=== PATIENT | female | born 1960 | race Caucasian/White ===

== ENCOUNTER 2023-09-02 13:08 | Outpatient (CLI) | payer MEDICAID ==
[~2023-09-02] VITALS: Ht 160 cm; Wt 158.8 kg
[2023-09-02] MEDS: albuterol 2.5 MG/3 ML nebule NEB ONE (13:44)
[2023-09-02 13:45] VITALS: PULSE 69; RESP 15; O2SAT 95
== END 2023-09-02 23:59 | disposition home or self-care (01) ==
LOC: RT 13:08
PROVIDERS: ATTEND Family Medicine
DX: R94.2 Abnormal results of pulmonary function studies (principal); R06.02 Shortness of breath
CPT/HCPCS: 94060; 94760

== ENCOUNTER 2024-08-07 09:52 | Day surgery (SDC) | payer MEDICARE, MEDICAID ==
[2024-08-03 10:53] LABS: BASOPHILS # (AUTO) 0.1 X10'3 (0-0.2); BASOPHILS % (AUTO) 1.1 % (0-1); EOSINOPHILS # (AUTO) 0.2 X10'3 (0-0.9); EOSINOPHILS % (AUTO) 1.7 % (0-6); HEMATOCRIT 37.2 % (35.0-45.0); HEMOGLOBIN 12.6 g/dl (12.0-16.0); LYMPHOCYTES # (AUTO) 4.1 X10'3 (1.1-4.8); LYMPHOCYTES % (AUTO) 44.6 % (21-51); MEAN CORPUSCULAR HEMOGLOBIN 29.8 PG (27.0-31.0); MEAN CORPUSCULAR HGB CONC 33.9 g/dL (33.0-36.5); MEAN CORPUSCULAR VOLUME 87.9 FL (78-98); MEAN PLATELET VOLUME 9.5 FL (7.4-10.4); MONOCYTES # (AUTO) 0.7 X10'3 (0-0.9); MONOCYTES % (AUTO) 7.3 % (2-12); NEUTROPHILS # (AUTO) 4.1 X10'3 (1.8-7.7); NEUTROPHILS % (AUTO) 45.3 % (42-75); PLATELET COUNT 230 X10'3 (140-440); RED BLOOD COUNT 4.23 X10'6 (4.20-5.60); RED CELL DISTRIBUTION WIDTH 13.8 % (11.5-14.5); WHITE BLOOD COUNT 9.1 X10'3 (4.5-11.0)
[2024-08-03 11:03] LABS: APTT 25 SECONDS (22-32)
[2024-08-03 11:04] LABS: ALBUMIN 3.7 G/DL (3.4-5.0); ANION GAP 5 (8-16); BLOOD UREA NITROGEN 16 MG/DL (7-18); BUN/CREATININE RATIO 16.7 (10.0-20.0); CALCIUM 8.9 MG/DL (8.5-10.1); CHLORIDE 105 MMOL/L (99-107); CHOL/HDL RATIO 3.6 (0.00-4.99); CHOLESTEROL 143 MG/DL (0-200); CREATININE 0.96 MG/DL (0.40-0.90); GLUCOSE 207 MG/DL (70-104); HDL CHOLESTEROL 40 MG/DL (35-60); LDL CHOLESTEROL 73 MG/DL (50-100); SODIUM 139 MMOL/L (135-145); TOTAL CARBON DIOXIDE 28.8 MMOL/L (24-32); TRIGLYCERIDES 248 MG/DL (20-135); eGFR 58 ML/MIN
[2024-08-03 11:08] LABS: POTASSIUM 4.4 MMOL/L (3.5-5.1); PROTHROMBIN TIME 10.5 SECONDS (9.0-12.0)
[2024-08-07] VITALS (8 sets, daily range): BP systolic 141–182; BP diastolic 47–84; PULSE 71–79; RESP 10–22; TEMP 98.7; O2SAT 96–99
[~2024-08-07] VITALS: Ht 160 cm; Wt 153.8 kg
[~2024-08-07 09:52] MED LIST: BIOT25008 PO; CHOL100010 PO; CYCL-394 PO; ESCI10TA45 PO; EXEN10PE SQ; INSU100V36 SQ; LANTUS SQ; LISI-222 PO; NORCO10T PO; OXYB5TAB82 PO; ROSU20TA2 PO
[2024-08-07] MEDS ORDERED: LORazepam 0.5 MG tablet PO PRN (10:10)
[2024-08-07] MEDS ORDERED: TIRZ10PE (10:21)
[2024-08-07] MEDS ORDERED: LEVO50TA8 PO (10:21)
[2024-08-07] MEDS ORDERED: FURO20TA4 PO (10:21)
[2024-08-07] MEDS ORDERED: LOSA25TA41 PO (10:22)
[2024-08-07] MEDS ORDERED: ATOR-2 PO (10:22)
[2024-08-07] MEDS ORDERED: CHOL500050 PO (10:23)
[2024-08-07] MEDS ORDERED: METF-900 PO (10:24)
[2024-08-07] MEDS ORDERED: IBUP-1985 PO (10:24)
[2024-08-07] MEDS ORDERED: ALBU10.7 (10:25)
[2024-08-07] MEDS ORDERED: ASPI81TA52 PO (10:26)
--- NOTE | 2024-08-07 10:44 | ELECTROCARDIOGRAPH REPORT ---
[facility] Test Date: 2024-08-07 Test Time: 10:39:26 Pat Name: DAYLIN KEENE Department: [facility] Patient ID: [id number] Room: Gender: F Sample Prep Technician: COURTNEY : 1960 Requested By: RANDY ANTHONY Order Number: [id number] Reading MD: Dr. GERMAINE Prater Measurements Intervals [place] Rate: 70 P: 70 FL: 208 QRS: 23 QRSD: 110 T: 82 QT: 432 QTc: 467 Interpretive Statements Sinus rhythm Electronically Signed On 08-07-2024 16:35:[address] GERMAINE Prater Please click the below link to view image of tracing.
[2024-08-07] MEDS: diphenhydrAMINE 25mg capsule PO PRN (11:44)
[2024-08-07] MEDS: normal saline 1,000 ML IV SCH (11:44)
[2024-08-07] MEDS ORDERED: midazolam 1 mg/ML 2ml injection ONE (11:46)
[2024-08-07] MEDS ORDERED: verapamil 2.5 mg/ml inj IV ONE ×2 (11:46→12:04)
[2024-08-07] MEDS ORDERED: LIDOcaine 1% (10mg/ml) 2ml vial ONE ×2 (11:46→12:03)
[2024-08-07] MEDS ORDERED: fentaNYL/PF 50MCG/1 ML 2ML syringe ONE (11:46)
[2024-08-07] MEDS ORDERED: heparin 1,000unit/ml 10ml vial 10 ML ONE (11:47)
[2024-08-07] MEDS ORDERED: iohexol 350MG/ML 100ml bottle IV ONE (11:47)
[2024-08-07] MEDS ORDERED: nitroGLYCERIN 500mcg/5mL D5W 5 ML IV ONE (11:48)
--- NOTE | 2024-08-07 15:17 | PROGRESS NOTE ---
Clinical Note Clinical Note Progress Note: Dictation job #: [id number] Consultation dictated. Visit Coding Cardiology Date of Service: August 07, 2024 Billing Provider: RANDI MARTINEZ Jr., MD Cardiology Evaluation and Cecilia: CONSULT ONLY New Patient Outpatient Visit: 11830-YAL PT OP VISIT 60+ MIN RANDI MARTINEZ Jr., MD August 07, 2024 15:17
--- NOTE | 2024-08-07 20:41 | CONSULTATION ---
DATE OF CONSULTATION: 08/07/2024 DICTATING PHYSICIAN: Rito Macdonald MD REQUESTING PHYSICIAN: Arya Camejo MD; Yinka Camejo MD PRIMARY CARE PROVIDER: Tony Day DO CHIEF COMPLAINT: I was asked to assess the options for surgical correction of severe aortic stenosis in this woman with morbid obesity. HISTORY OF PRESENT ILLNESS: This pleasant woman with diabetes has not been able to work for many years because of her weight. She has recently lost weight with Mounjaro, but has had sufficient diabetic retinopathy that she is blind in her right eye and has substantially impaired vision in her left eye. She has longstanding mobility issues from her morbid obesity, superimposed on by left hip arthritis that she typically will use a wheelchair for anything other than very short distances and describes the extent of her activity as typically living room to bathroom using a cane or holding on objects. She does not actually appreciate an overt difference in exertion capacity above these limitations because of aortic valve stenosis, which has progressed to the severe state. Her primary care doctor had recognized a murmur. The patient has had a murmur as a child that appeared to have become undetectable when she was still a young girl. Her [facility] does not describe a bicuspid valve. The ejection fraction was 69%. The aortic valve area was 0.7 cm2 and the mean gradient was 47.5 mmHg. There was no aortic valve regurgitation. There was trace mitral regurgitation with moderate mitral annular calcification and trace tricuspid regurgitation. The RVSP was 23 mmHg with an estimated RA pressure of 3 mmHg. At cardiac catheterization today, the patient had normal coronary arteries with a right dominant circulation. Significantly, there was no pulmonary hypertension. The patient denies overt chest discomfort, palpitations and does not rise readily from a sitting position enough that she has ever appreciated orthostatic symptoms or lightheadedness. There are no palpitations, and the patient has had longstanding venous stasis dermatitis with lower extremity brawny-type swelling. ALLERGIES: METFORMIN AND MACRODANTIN. PAST MEDICAL HISTORY: OPERATIONS: Childbearing only. MEDICAL ILLNESSES: Insulin-dependent diabetes mellitus, obstructive sleep apnea (the patient has never used or tolerated a CPAP mask; she sleeps principally on her right side), hypertension, hypercholesterolemia. MEDICATIONS: Medication list reviewed, notable for lisinopril, Januvia, Crestor, Lantus, hydrocodone/acetaminophen, Humalog, Mounjaro, furosemide, atorvastatin, losartan, among others. FAMILY HISTORY: Noncontributory for the current problem. PERSONAL AND SOCIAL HISTORY: See above. REVIEW OF SYSTEMS: CONSTITUTIONAL: Notable for weight loss, associated with Mounjaro. Negative for fevers, chills, or night sweats. HEENT: Notable for upcoming dental extraction of 6 teeth, planned in anticipation of aortic valve replacement. Notable for vision impairment. Negative for epistaxis or dysphagia. CARDIOPULMONARY: See history of present illness. Negative for cough or hemoptysis. GASTROINTESTINAL: The patient had a murmur detected when she was considering bariatric surgery. Negative for blood per rectum or liver disease. GENITOURINARY: Negative for dysuria. ENDOCRINE: Notable for diabetes. Negative for known thyroid disorder. MUSCULOSKELETAL: Notable for arthritis in multiple joints, but notably most symptomatically in the left hip. Notable for venous stasis disease and mild lower extremity neuropathy of recent onset related to diabetes. NEUROLOGIC: Negative for transient ischemic attacks, amaurosis, or seizure. PHYSICAL EXAMINATION: GENERAL: The patient is a pleasant woman who is morbidly obese. She is sitting with the head of the bed at 40 degrees. VITAL SIGNS: Temperature 98.7 degrees, blood pressure 155/75, heart rate 75, regular, room air oxygen saturation 97%. HEENT: Normocephalic, reactive pupils, impaired dentition. NECK: No overt thyromegaly. Notable for a transmitted murmur to both carotids. Normal jugular venous distention. CHEST: Clear lungs posterolaterally. BREASTS: Examination not performed. HEART: S1, S2. No extrasystole. Notable for 2/6 systolic ejection murmur in the right second interspace with apical component. No diastolic murmur or apical holosystolic murmur. ABDOMEN: Obese, nontender, nondistended. No palpable aneurysm, and difficult to assess overt organomegaly. EXTREMITIES: Notable for venous stasis dermatitis. The dorsalis pedis pulses are palpable bilaterally. Gait and stance not checked. PSYCHIATRIC: Normal affect. IMPRESSION AND PLAN: 1. I think that this patient has sufficiently severe aortic valve stenosis even in the absence of obvious symptom progression or classic symptomatology, that aortic valve replacement is indicated. 2. However, because of the patient's mobility limitations which are very substantial, she is best served with a transcatheter approach, it appears that she is already preparing for such an option with upcoming dental extractions. 3. I am not perceiving that the patient has severe extraordinarily heavy calcifications of the aortic valve that would prohibit effective transcatheter valve implantation. 4. The patient was applauded for her efforts at weight loss, assisted with the Mounjaro medication. I very much appreciate this consultation opportunity. Rito Macdonald MD TID: [id number] RECEIPT: [id number] JAMESON/KATHERINE/SALENA cc: Yinka Camejo MD(User), DO TIM Nails
[2024-08-08 06:52] LABS: ISTAT HGB MIX 11.2 g/dl (12.0-16.0); ISTAT Hct MIX 33 %PCV (35-45); ISTAT O2 SATURATION MIX VENOUS 73 % (60-80); ISTAT SOURCE VEN
--- NOTE | 2024-08-26 12:10 | CARDIOLOGY REPORT ---
DATE OF SERVICE: 08/07/2024 DICTATING PHYSICIAN: Yinka Camejo MD CARDIAC CATHETERIZATION PROCEDURE DATE OF STUDY: 08/07/2024 PROCEDURES: * Selective coronary angiography. * Right heart catheterization. * Conscious sedation monitoring time for 45 minutes. INDICATION: Aortic stenosis. PHYSICIAN: Tez Camejo MD DESCRIPTION OF PROCEDURE: After informed consent was obtained, the patient was brought to the lab where she was prepped and draped in the usual sterile fashion. A 6-[place] sheath was inserted into the right radial artery. Next, using a TIG catheter, the catheter was advanced over a 0.035 wire and manipulated and selective left and right coronary artery angiography was performed. With a 6-[place] sheath in the right brachial vein, a [place] catheter was advanced under fluoroscopy guidance into the outflow tract and wedge position where pulmonary capillary wedge pressure and right-sided pressures were obtained. Hemostasis was obtained using manual pressure. HEMODYNAMICS: For the patient's hemodynamics, please refer to the event log. Left ventriculography was not performed. The patient's pulmonary capillary wedge pressure was 10/10 with a mean of 9 mmHg. Pulmonary arterial pressure was 33/10 with a mean of 18 mmHg. Right ventricular pressure was 33/2 with a mean of 2 mmHg. Right atrial pressure was 5/10 with a mean of 0 mmHg. Pulmonary arterial saturation was 73%. AO saturation was 94%. FINDINGS: The patient's coronary arteries are medium caliber vessels with mild luminal irregularities. IMPRESSION: * Mild luminal irregularities with no significant coronary artery disease by angiography. * Left ventriculography was not performed. * Mean pulmonary capillary wedge pressure was 9 mmHg and the patient's mean pulmonary arterial pressure was 18 mmHg. Yinka Camejo MD TID: [id number] RECEIPT: [id number] VALERIANO/ALEXIS
== END 2024-08-07 16:20 | disposition home or self-care (01) ==
LOC: SSTAY O 09:52
PROVIDERS: ATTEND Student in an Organized Health Care Education/Training Program
DX: I35.0 Nonrheumatic aortic (valve) stenosis (principal); G47.33 Obstructive sleep apnea (adult) (pediatric); E11.9 Type 2 diabetes mellitus without complications; I10 Essential (primary) hypertension; Z79.01 Long term (current) use of anticoagulants; Z79.899 Other long term (current) drug therapy
CPT/HCPCS: 36415; 80048; 80061; 82803; 82948; 85014; 85025; 85610; 85730; 93005; 93456; 99152; 99153; A6258; A6402; C1751; C1894; J1644; J2003; J2250; J3010; J3490; J7030; Q0163; Q9967; Z7610

== ENCOUNTER 2024-09-06 11:27 | Outpatient (CLI) | payer MEDICARE, MEDICAID ==
[~2024-09-06 11:27] MED LIST changes: +ALBU10.7; +ASPI81TA52 PO; +ATOR-2 PO; +CHOL500050 PO; -ESCI10TA45 PO; -EXEN10PE SQ; +FURO20TA4 PO; +IBUP-1985 PO; +IODIXANOL 320 MG/ML INFUS..BTL 100ML IV ONE; +LEVO50TA8 PO; -LISI-222 PO; +LOSA25TA41 PO; +METF-900 PO; -ROSU20TA2 PO; +TIRZ10PE
[2024-09-06 12:22] LABS: BASOPHILS # (AUTO) 0.1 X10'3 (0-0.2); BASOPHILS % (AUTO) 1.1 % (0-1); EOSINOPHILS # (AUTO) 0.2 X10'3 (0-0.9); EOSINOPHILS % (AUTO) 2.6 % (0-6); HEMATOCRIT 35.8 % (35.0-45.0); HEMOGLOBIN 12.1 g/dl (12.0-16.0); LYMPHOCYTES # (AUTO) 3.9 X10'3 (1.1-4.8); LYMPHOCYTES % (AUTO) 43.3 % (21-51); MEAN CORPUSCULAR HEMOGLOBIN 30.2 PG (27.0-31.0); MEAN CORPUSCULAR HGB CONC 33.8 g/dL (33.0-36.5); MEAN CORPUSCULAR VOLUME 89.5 FL (78-98); MEAN PLATELET VOLUME 9.9 FL (7.4-10.4); MONOCYTES # (AUTO) 0.7 X10'3 (0-0.9); NEUTROPHILS # (AUTO) 4.1 X10'3 (1.8-7.7); PLATELET COUNT 212 X10'3 (140-440); RED CELL DISTRIBUTION WIDTH 13.9 % (11.5-14.5)
[2024-09-06 12:30] LABS: APTT 21 SECONDS (22-32); PROTHROMBIN TIME 10.4 SECONDS (9.0-12.0)
[2024-09-06 12:49] LABS: ALANINE AMINOTRANSFERASE 18 U/L (12-78); ALBUMIN 3.5 G/DL (3.4-5.0); ALBUMIN/GLOBULIN RATIO 0.9 (1.1-1.5); ALKALINE PHOSPHATASE 77 IU/L (46-116); ANION GAP 9 (8-16); ASPARTATE AMINO TRANSFERASE 16 U/L (10-37); BILIRUBIN,TOTAL 0.6 MG/DL (0.1-1.0); BLOOD UREA NITROGEN 15 MG/DL (7-18); BUN/CREATININE RATIO 17.9 (10.0-20.0); CALCIUM 9.2 MG/DL (8.5-10.1); CHLORIDE 105 MMOL/L (99-107); CREATININE 0.84 MG/DL (0.40-0.90); GLUCOSE 86 MG/DL (70-104); POTASSIUM 3.7 MMOL/L (3.5-5.1); PRO BRAIN NATRIURETIC PEPTIDE 206 PG/ML (0-125); SODIUM 144 MMOL/L (135-145); TOTAL CARBON DIOXIDE 29.7 MMOL/L (24-32); TOTAL PROTEIN 7.5 G/DL (6.4-8.2); eGFR 68 ML/MIN
--- NOTE | 2024-09-06 12:52 | RADIOLOGY REPORT ---
EXAM: DI CHEST,TWO VIEWS CLINICAL HISTORY: Pain; AV STENOSIS,SOB,CAROTID STENOSIS COMPARISON: None TECHNIQUE: Frontal and lateral view of the chest was obtained FINDINGS: Lines and Tubes: None Lungs: No focal consolidation. Pleura: No effusion. No pneumothorax. Cardiomediastinal contours:Mild cardiomegaly. Atherosclerotic vascular calcifications of the thoracic aorta are noted. Bones: No acute osseous abnormality. IMPRESSION: No acute cardiopulmonary disease.
[2024-09-06] MEDS: diphenhydrAMINE 25mg capsule PO ONE (14:25)
--- NOTE | 2024-09-06 17:57 | CONSULTATION ---
DATE OF CONSULTATION: 09/06/2024 DICTATING PHYSICIAN: Hollis Hastings M.D. CARDIOVASCULAR CONSULTATION REFERRING PHYSICIAN: Dr. Camejo. Dear Dr. Camejo, I had the pleasure of seeing the patient here for cardiovascular consultation with regards to severe symptomatic aortic valve stenosis. As you recall, a very pleasant 63-year-old patient who has a history of hyperlipidemia, diabetes and obesity. She has very limited mobility and gets around on motorized scooters and/or devices. She has had progressive shortness of breath and dyspnea on exertion despite weight loss through the use of Mounjaro and she was found to have severe aortic valve stenosis on echocardiogram. She underwent angiographic imaging with nonobstructive coronary. She has preserved EF and it was thought that her severe was causing her symptomatology. She was referred over for candidacy for surgical aortic valve replacement and Dr. Macdonald had sent her over to see us for transcatheter valve replacement, giving her substantial limitations to recovery. PAST MEDICAL HISTORY: * Severe symptomatic aortic valve stenosis. * Hyperlipidemia. * Diabetes, on therapy. * Obstructive sleep apnea. * Obesity. PAST SURGICAL HISTORY: No surgical history. ALLERGIES: SHE HAS HIVES VISIBLY IN FRONT OF US AFTER HER CT SCAN TODAY AND SHOULD BE PRETREATED FOR CONTRAST ALLERGY. METFORMIN AND MACRODANTIN. MEDICATIONS: Oxybutynin 5 mg twice a day, losartan 25 mg a day, Lasix 20 mg a day, levothyroxine 50 mcg a day, atorvastatin 80 mg a day, metformin ER 500 mg twice a day, Lantus 60 units 3 times a day, Humalog 37 units 3 times a day, vitamin D3, ibuprofen as directed, narcotics as directed, Mounjaro 5 mg a week, albuterol as needed, multiple vitamins and aspirin 81 mg a day. SOCIAL HISTORY: She does live with her boyfriend and family locally. FAMILY HISTORY: Noncontributory given her age. VITAL SIGNS: She is 63 inches tall, 157 kg, heart rate is 80, blood pressure 156/72, satting 95% on room air. PHYSICAL EXAMINATION: GENERAL: A very pleasant 63-year-old woman, in no apparent distress at rest. She has visible hives on her left and right neck at the angle of the mandible and on her abdomen on the left. These are erythematous and pruritic. HEENT: She has the absence of dentition and no oral ulcers. NECK: She has full range of motion of her neck. CARDIOVASCULAR: Regular. She has a 3/6 mid to late peaking systolic ejection murmur with a soft S2. No RV heave was noted. LUNGS: Clear. ABDOMEN: Generous, but benign. We had the patient lay on her exam table and did an ultrasound of the femoral arteries. They are about 2 cm below the skin surface. EXTREMITIES: [place] appearance and 3+ edema. LABORATORY TESTS AND EVALUATION: * CT scan was done today and is pending a read. * Angiographic imaging of coronary anatomy took place in August for right radial approach, normal right heart pressures, nonsignificant coronary artery disease. * Nonobstructive carotid disease. * Echocardiogram shows preserved LV systolic function. She has an aortic valve area calculated at 0.7 cm2 with a mean gradient close to 50 mmHg. Labs: She has a hemoglobin of 12.2, platelet count 230,000; creatinine 0.96, her blood sugar 207 at that time, albumin is 3.7. Her LDL is 73. EKG shows her to be in sinus rhythm with a QRS duration of 110 milliseconds. Holter monitor does not show any major blocks. ASSESSMENT AND PLAN: A 63-year-old patient with the above-stated past medical history with severe symptomatic aortic valve stenosis. She has seen CT Surgery for consultation. It was deemed appropriately based on her size and medical conditions that recovery from a traditional sternotomy would be substantial and that if she was a candidate for a transfemoral TAVR, that might be her best option. We have the following plan for her: * We need to get the official read of her CT scan, if she is bicuspid, does she have a dilated root, does she have appropriate coronary height for a TAVR, if so, this should be considered. * She has had an allergy to contrast and should be pretreated for any further exposure. * She has had all of her teeth removed and has dental clearance at this time after multiple weeks of antibiotics. * Diabetes on therapy. * Hyperlipidemia, on therapy. * Hypothyroidism, on therapy. * She is on an active weight loss program and has lost weight and I think she will continue to do so postprocedure. Dr. Camejo, thanks for allowing us the opportunity to see the patient. If we can be of any further assistance with this or any patient in the future, please do not hesitate to call. Hollis Hastings M.D. TID: [id number] RECEIPT: [id number] HARPREET/GALILEA
--- NOTE | 2024-09-07 18:01 | RADIOLOGY REPORT ---
Procedure: CT CTA TAVR Reason for study/Clinical History: Chest pain, evaluate for dissection. Comparison Study: None Exam Date: 09/06/2024 01:41 PM TECHNIQUE: Multiplanar reformatted images were generated from volumetric data acquired on a multidetector CT [facility]. Cardiac gating was utilized. Arterial phase images were obtained through the chest, abdomen and pelvis following intravenous administration of contrast material. 100 mL visipaque [address] dose reduction techniques were utilized. 3-D reconstructions were performed on an independent work station. Radiation Dose Information: CT Dose: CTDI volume is 65 mGy. Dose-length product is 2598 mGy*cm FINDINGS: Vascular: Aortic measurements: Aortic annulus: 32.8 x 24.8 mm Sinus of valsalva: right cusp 31.5 mm, left cusp 29.3 mm, non-coronary cusp 31.4 mm Right coronary distance: 17.9 Left coronary distance: 11.3 ST junction 26.2 mm Ascending aorta 31 mm Aortic arch 22 mm Descending aorta 23 mm Aortic hiatus 21 mm Upper abdominal aorta 20 mm Minimal abdominal aorta 11.9 mm Right common iliac 9.01 mm, tortuosity index 1.13 Left common iliac 8.53 mm, tortuosity index 1.11 There is normal caliber of aorta. No aortic dissection. Aortic arch anatomy is conventional. There is conventional coronary artery anatomy. Scattered calcified atherosclerotic plaque. No central pulmonary embolism. There is normal dimension of the main pulmonary artery. Heart is normal. There are no intracardiac filling defects. No pericardial effusion. Mediastinum: There is no significant intrathoracic or axillary lymphadenopathy by CT size criteria. Lungs: Patchy ground-glass opacities in both lungs. Atelectasis and scarring in the lung bases. Pleura: No effusion or pneumothorax. Chest wall: No acute abnormality. Abdomen and Pelvis: Liver: Normal in appearance. Gallbladder: Cholelithiasis. Spleen: Normal in appearance. Pancreas: Normal in appearance. Adrenals: Normal in appearance. Kidneys: Normal in appearance. Bowel: Normal in appearance. Peritoneum: No free air or free fluid. Lymph nodes: No lymphadenopathy by CT size criteria. Pelvic structures: No pelvic mass. Bones: Normal in appearance. IMPRESSION: 1. TAVR planning with vascular measurements as described above. 2. Patchy ground-glass opacities in both lungs likely represent subsegmental atelectasis. Clinical co rrelation and continued follow-up is recommended. Cholelithiasis. HS:Y
[2024-09-11] MEDS ORDERED: TIRZ5PEN SQ (13:02)
[2024-09-11] MEDS ORDERED: ALBU8HFA INH (13:02)
[2024-09-11] MEDS ORDERED: vitamin c (13:05)
[2024-09-11] MEDS ORDERED: [UNRECOGNIZED DRUG - OTHER] (13:05)
[2024-09-11] MEDS ORDERED: GLUC1TAB75 PO (13:05)
== END 2024-09-06 23:59 | disposition home or self-care (01) ==
LOC: RAD 11:27
PROVIDERS: ATTEND Internal Medicine Cardiovascular Disease
DX: K80.20 Calculus of gallbladder without cholecystitis without obstruction (principal); J98.11 Atelectasis; J98.4 Other disorders of lung; I35.0 Nonrheumatic aortic (valve) stenosis; R06.02 Shortness of breath; I65.29 Occlusion and stenosis of unspecified carotid artery
CPT/HCPCS: 36415; 71046; 71275; 74174; 75572; 80053; 83880; 85025; 85610; 85730; Q0163; Q9967

== ENCOUNTER 2024-09-13 10:55 | Inpatient (IN) | payer MEDICARE, MEDICAID ==
[2024-09-11 11:29] LABS: BASOPHILS # (AUTO) 0.1 X10'3 (0-0.2); BASOPHILS % (AUTO) 0.6 % (0-1); EOSINOPHILS # (AUTO) 0.2 X10'3 (0-0.9); EOSINOPHILS % (AUTO) 2.9 % (0-6); LYMPHOCYTES # (AUTO) 3.1 X10'3 (1.1-4.8); LYMPHOCYTES % (AUTO) 37.8 % (21-51); MEAN CORPUSCULAR HEMOGLOBIN 30.1 PG (27.0-31.0); MEAN CORPUSCULAR HGB CONC 33.7 g/dL (33.0-36.5); MEAN CORPUSCULAR VOLUME 89.5 FL (78-98); MEAN PLATELET VOLUME 9.3 FL (7.4-10.4); MONOCYTES # (AUTO) 0.6 X10'3 (0-0.9); NEUTROPHILS # (AUTO) 4.3 X10'3 (1.8-7.7); NEUTROPHILS % (AUTO) 51.7 % (42-75); PRE OP HEMATOCRIT 37.5 % (35.0-45.0); PRE OP HEMOGLOBIN 12.6 g/dL (12.0-16.0); PRE OP PLATELET COUNT 206 X10'3 (140-440); PRE OP WHITE BLOOD COUNT 8.3 10'3 (4.8-10.8); RED BLOOD COUNT 4.19 X10'6 (4.20-5.60); RED CELL DISTRIBUTION WIDTH 14.1 % (11.5-14.5)
[2024-09-11 11:43] LABS: PRE OP PROTIME 10.4 SECONDS (9.0-12.0)
--- NOTE | 2024-09-11 11:45 | ELECTROCARDIOGRAPH REPORT ---
[facility] Test Date: 2024-09-11 Test Time: 11:25:04 Pat Name: DAYLIN KEENE Department: PRE/OP CARDIOLOGY Room: [place] [address] Gender: F Inside Sales Person: COURTNEY : 1960 Requested By: GORDON MONTGOMERY Order Number: [id number] Reading MD: Dr. Esvin Vaughn Measurements Intervals [place] Rate: 66 P: 51 ME: 203 QRS: 57 QRSD: 105 T: 66 QT: 423 QTc: 444 Interpretive Statements Sinus rhythm Abnormal R-wave progression, delayed precordial transition Borderline T abnormalities, lateral leads Electronically Signed On 09-14-2024 8:10:[address] Esvin Vaughn Please click the below link to view image of tracing.
[2024-09-11 11:59] LABS: ALBUMIN 3.7 G/DL (3.4-5.0); ALBUMIN/GLOBULIN RATIO 0.9 (1.1-1.5); ALKALINE PHOSPHATASE 79 IU/L (46-116); BLOOD UREA NITROGEN 13 MG/DL (7-18); BUN/CREATININE RATIO 14.1 (10.0-20.0); CALCIUM 9.4 MG/DL (8.5-10.1); CHLORIDE 105 MMOL/L (99-107); CREATININE 0.92 MG/DL (0.40-0.90); PRE OP ALT 16 U/L (30-65); PRE OP ANION GAP 8 (8-16); PRE OP AST 20 U/L (10-37); PRE OP BILIRUB, TOTAL 0.6 MG/DL (0.0-1.0); PRE OP GLUCOSE 127 MG/DL (70-104); PRE OP POTASSIUM 3.8 MMOL/L (3.4-5.1); PRE OP SODIUM 143 MMOL/L (135-145); PRO BRAIN NATRIURETIC PEPTIDE 156 PG/ML (0-125); THYROID STIMULATING HORMONE 1.32 ulU/ml (0.34-4.50); TOTAL CARBON DIOXIDE 30.5 MMOL/L (24-32); eGFR 61 ML/MIN
[2024-09-11 12:00] LABS: HEMOGLOBIN A1C 7.2 % (4.5-6.2)
[2024-09-11 12:49] LABS: BILIRUBIN,URINE NEGATIVE (Neg); CLARITY,URINE CLEAR (Clear); COLOR,URINE YELLOW (Yellow); GLUCOSE, URINE NEGATIVE (Neg); KETONES,URINE NEGATIVE (Neg); LEUKOCYTE ESTERASE ,URINE TRACE (Neg); NITRITES, URINE POSITIVE (Neg); OCCULT BLOOD,URINE NEGATIVE (Neg); PROTEIN,URINE NEGATIVE (Neg); UROBILINOGEN,URINE 0.2 E.U/dL (0.2-1.0)
[2024-09-11 12:55] LABS: UA COLLECTION TYPE NON-SPECIFIED
[2024-09-11 12:57] LABS: BACTERIA,URINE 3+ /HPF (Neg); RBC,URINE 0-2 /HPF (0-2)
[2024-09-11 12:58] LABS: MUCUS STRANDS FEW /LPF (Neg); SQUAMOUS EPITHELIAL CELL,UR FEW /LPF (FEW)
[2024-09-13] VITALS (23 sets, daily range): BP systolic 136–178; BP diastolic 65–85; PULSE 71–112; RESP 15–19; TEMP 97.3–97.8; O2SAT 92–99
[~2024-09-13] VITALS: Ht 160 cm; Wt 153.6 kg
[2024-09-13] MEDS: CEFAZOLIN 3GM/DEXTROSE 150mL 150 ML IV ONE (05:30)
[~2024-09-13 10:55] MED LIST changes: -ALBU10.7; +ALBU8HFA INH; -BIOT25008 PO; -CHOL100010 PO; -CYCL-394 PO; +GLUC1TAB75 PO; -IODIXANOL 320 MG/ML INFUS..BTL 100ML IV ONE; -TIRZ10PE; +TIRZ5PEN SQ; +VANCOMYCIN 1GM 200ML H20 (PEG) 200 ML IV ONE; +[UNRECOGNIZED DRUG - OTHER]; +nitroPRUSSIDE (NIPRIDE) (200MCG/ML) 100ML Drip IV SCH; +ondansetron/PF 4mg/2ml inj IV PRN; +phenylephrine inj 50 MG in normal saline 250ml IV solN IV SCH; +protamine sulfate 10mg/ml inj. ONE; +vitamin c
[2024-09-13] MEDS: aspirin 325mg tablet PO ONE (12:08)
[2024-09-13] MEDS: famotidine 20mg tablet PO ONE (12:08)
[2024-09-13] MEDS: ringers solution, lacted 1,000 ML IV SCH ×2 (12:09→13:20)
[2024-09-13] MEDS: VANCOMYCIN/H2O 1.5g/300mL PB 300 ML IV ONE (12:09)
[2024-09-13] MEDS ORDERED: protamine sulfate 10mg/ml inj. ONE (12:57)
[2024-09-13] MEDS ORDERED: meperidine/PF 25mg/ml syringe IV PRN (13:20)
[2024-09-13] MEDS ORDERED: morphine 4 MG/ML inj SYRINge IV PRN (13:20)
[2024-09-13] MEDS ORDERED: hydrALAZINE 20mg/ml inj. IV PRN (13:20)
[2024-09-13] MEDS ORDERED: morphine 2 MG/ML inj. syringe IV PRN (13:20)
[2024-09-13] MEDS ORDERED: proCHLORperazine 10 MG/2 ml inj IV PRN ×2 (13:20→18:00)
[2024-09-13] MEDS ORDERED: HYDROmorphone/PF 0.2 MG/ML SYRINGE IV PRN ×2 (13:20)
[2024-09-13] MEDS ORDERED: ondansetron/PF 4mg/2ml inj IV PRN ×2 (13:20→18:00)
[2024-09-13] MEDS ORDERED: iohexol 350MG/ML 100ml bottle IV ONE (16:23)
[2024-09-13] MEDS ORDERED: heparin 1,000 UNITS/NS 500ml 1,500 ML ONE (16:23)
[2024-09-13] MEDS ORDERED: midazolam 1 mg/ML 2ml injection ONE (16:32)
[2024-09-13] MEDS ORDERED: fentaNYL/PF 50MCG/1 ML 2ML syringe ONE (16:32)
[2024-09-13] MEDS ORDERED: albuterol 2.5 MG/3 ML nebule NEB PRN (16:35)
[2024-09-13] MEDS ORDERED: HYDROcodone/acetaminophen 10/325mg tab PO PRN (16:35)
[2024-09-13] MEDS ORDERED: ondansetron/PF 4mg/2ml inj ONE (17:00)
[2024-09-13] MEDS ORDERED: dexamethasone sod phosphate 4mg/ml inj. ONE (17:00)
[2024-09-13] MEDS ORDERED: rocuronium 10mg/ml inj IV ONE (17:00)
[2024-09-13] MEDS ORDERED: propofol inj 20 ML IV ONE (17:17)
[2024-09-13] MEDS ORDERED: heparin 1,000unit/ml 10ml vial 10 ML ONE ×2 (17:17)
[2024-09-13] MEDS ORDERED: LIDOcaine 2% (20mg/ml) 5ml vial ONE (17:17)
[2024-09-13] MEDS ORDERED: fentaNYL /PF 50mcg/ml 5ml ampule ONE (17:19)
[2024-09-13] MEDS ORDERED: glycopyrrolate 0.2mg/ml inj ONE (17:53)
[2024-09-13] MEDS ORDERED: neostigmine methylsulfate 1 MG/ML 10ml vial ONE (17:53)
[2024-09-13] MEDS ORDERED: magnesium sulf-water 2g/50mL 50 ML IV PRN (18:00)
[2024-09-13] MEDS ORDERED: magnesium sulf-water 4G/100mL 100 ML IV PRN (18:00)
[2024-09-13] MEDS ORDERED: diphenhydrAMINE 25mg capsule PO PRN (18:00)
[2024-09-13] MEDS ORDERED: potassium Cl 20 mEq SR tablet PO PRN (18:00)
[2024-09-13] MEDS ORDERED: pantoprazole 40mg Tablet.DR PO PRN (18:00)
[2024-09-13] MEDS ORDERED: labetalol 20mg/4ml (5mg/ml) syringe IV PRN (18:00)
[2024-09-13] MEDS ORDERED: acetaminophen 325mg tablet PO PRN (18:00)
[2024-09-13] MEDS ORDERED: HYDROcodone/acetaminophen 5mg/325mg tablet PO PRN (18:00)
[2024-09-13] MEDS ORDERED: ALPRAZolam 0.25mg tablet PO PRN (18:00)
[2024-09-13] MEDS ORDERED: potassium Cl 20mEq/100mL bag 100 ML IV PRN (18:00)
[2024-09-13] MEDS ORDERED: potassium CL 10mEq/100ml bag 100 ML IV PRN (18:00)
[2024-09-13] MEDS ORDERED: potassium Cl 40MEQ/270ML bag 250 ML IV PRN (18:00)
[2024-09-13] MEDS ORDERED: potassium Cl 40MEQ/1/2NS 520ml 520 ML IV PRN (18:00)
[2024-09-13] MEDS ORDERED: docusate sod 100mg capsule PO PRN (18:00)
--- NOTE | 2024-09-13 18:02 | OPERATIVE REPORT ---
Operative Report Providers to CC CC: DANIEL CAMEJO MD ~ Date of Procedure: Sep 13, 2024 Pre-Operative Diagnosis: Severe Aortic Stenosis Post-Operative Diagnosis SAME as PRE-Op Procedure Performed 1. Ultrasound-guided access, bilateral femoral vessels. 2. Bilateral femoral angiography. 3. Ascending aortography. 4. Temporary transvenous pacer to the RV apex. 5. Placement of a 26 +1 mm Hubbard S3 Resilia valve. Surgeon: Randy Camejo MD [employer] MD Dr. Lei Artis MD Anesthesiologist: Frandy Vaughn Type of Anesthesia: General Findings: Severe Aortic Stenosis Complications None Prosthetics\Implants used: Hubbard 26+1mm S3 Resilia Estimated Blood Loss: Minimal Specimen Removed: None Description of Procedure: The patient was brought to the blood and plasma laboratory assistant in a fasting state. They underwent general associated anesthesia. A right radial arterial line was placed. Ultrasound was used to guide access to the bilateral femoral vessels, 7-[place] sheath, right femoral artery, 6-[place] sheath, left femoral artery and vein. Bilateral femoral angiograms were obtained. Heparin was given to maintain an ACT over 250 seconds. Two crisscross Percloses were placed on the right. We upsized to an 8-[place] sheath. Two pigtail catheters placed in the ascending aorta. Ascending aortography done to determine the angle of deployment. Temporary transvenous pacer to the RV apex and confirmed capture. We upsized an 8-[place] sheath to a 14-[place] Hubbard eSheath on the right. We crossed the aortic valve using a straight stiff exchange length Terumo wire supported by a 6-[place] AL1 catheter. LV AO pressures were recorded. A Finisar extra support wire was placed in the left ventricle. A 26(+1)mm Hubbard S3 Resilia valve was brought to position and under rapid right ventricular pacing was deployed. Post-procedure, there was no AI and no residual . Guidewires and balloons were removed at this time. The temporary pacer was removed. The 14-[place] Hubbard eSheath was removed and two crisscross Percloses tied with adequate hemostasis. The arterial sheath on the left was removed and a single Perclose tied. The venous sheath on the left was removed and a single Angioseal used for hemostasis. Protamine was given to reverse the effects of heparin. The patient was stable post-procedure. Good pulses in the legs and no evidence of bleeding, transferred to the PACU in stable condition. HEMODYNAMICS: Pre: LV: 141/10 mmHg LVEDP: 17mmHg Ao: 110/65, MAP 82mmHg Post: LV: 153/18 mmHg LVEDP: 28 mmHg Ao: 151/66, MAP 96mmHg RESULTS: 1. Successful placement of a 26(+1) mm Hubbard S3 Resilia valve, right tr ansfemoral approach, two perclose devices. ASA 81mg QD 2. UTI: Start Bactrim BID in AM x 5 days 3. Hypertension: Resume if blood pressure remains stable 4. Acute on chronic diastolic heart failure, elevated LVEDP, pBNP despite obesity Patient will be watched in the recovery area until stable, then transferred to telemetry at that time. RANDY CAMEJO MD Sep 13, 2024 18:02
[2024-09-13] MEDS ORDERED: albuterol 60 PUFF/8GM Inhaler (90mcg/1 puff) IH ONE (18:04)
--- NOTE | 2024-09-13 18:24 | ELECTROCARDIOGRAPH REPORT ---
[facility] Test Date: 2024-09-13 Test Time: 18:19:33 Pat Name: DAYLIN KEENE Department: [facility] [place] Patient ID: [id number] Room: [place] [address] Gender: F Landcare Officer: CRISTINE : 1960 Requested By: RANDY ANTHONY Order Number: [id number] Reading MD: Dr. Esvin Vaughn Measurements Intervals [place] Rate: 82 P: 60 [place]: 207 QRS: 7 QRSD: 110 T: 89 QT: 426 QTc: 498 Interpretive Statements Sinus rhythm Borderline T abnormalities, lateral leads Borderline prolonged QTc interval Electronically Signed On 09-14-2024 8:25:[address] Esvin Vaughn Please click the below link to view image of tracing.
[2024-09-13] MEDS: acetaminophen 1,000mg/100ml IV 100 ML IV PRN (18:42)
--- NOTE | 2024-09-13 18:47 | CARDIOLOGY REPORT ---
APPROVED REPORT EXAM: Focused, limited intraprocedural transthoracic 2D, spectral and color flow Doppler echocardiogr am during TAVR deployment. Patient Location: CARDIAC RETAIL CLIENT SOLUTIONS ANALYST Blood Pressure: 188/90 mmHg Heart Rate: 80 bpm Rhythm: NSR Indications Severe Aortic Stenosis 26 mm Hubbard Wayne 3 Ultra RESILIA Bioprosthetic TAVR Diabetes EARNEST Knot Saw Operator: Aissatou Camejo MD / Interventionalist: Yordy Camejo MD and Jean-Pierre Hastings MD. / Surgeon: Aissatou Mcduffie MD. / Device rep: Kale Tolbert ELS Previous echo: 07/23/24 CVC EN 69% EF ; HANK 0.7 ; peak v 4.26 ; grad 72/47 ; LVOT 1.99 ; VHD tr MR TR LEFT VENTRICLE LV appears normal in size with mild concentric hypertrophy. Overall systolic function appears normal. LVEF is 65-70%. RIGHT VENTRICLE RV appears normal in size and contractility. AORTIC VALVE Trileaflet AV appears heavily calcified with significant stenosis demonstrated by reduced excursion a nd increased transvalvular and ascending aorta turbulance.HANK is measured at 0.6 cmsq. Peak/mean grad ients of 84/51 mmHG. Peak velocity is measured at 4.57 m/sec. No insufficiency. POST DEPLOYMENT (LOOP : 39): 26 mm Hubbard Wayne 3 Ultra Resilia bioprosthetic TAVR appears well seated with normal functi on. Trace paravalvular leak present at 2 o'clock in TTE SAX BASE. HANK is measured at 3.3 cmsq. Peak / mean gradients of 12/6 mmHG. Peak velocity is measured at 1.73 m/sec. MITRAL VALVE MV is thickened with mild annular calcification and no stenosis. Trace mitral regurgitation. TRICUSPID VALVE The tricuspid valve is normal in structure. Trace tricuspid regurgitation. PERICARDIUM There is no pericardial effusion. Other Information Study Quality: Adequate
[2024-09-13] MEDS: labetalol 20mg/4ml (5mg/ml) syringe IV PRN (18:52)
[2024-09-13] MEDS: oxybutynin 5mg tablet PO SCH (21:22)
[2024-09-13] MEDS: vancomycin/NS 1 GM ADD-VANTAGE 250 ML IV SCH (21:23)
[2024-09-13] MEDS: normal saline 1000ml 1,000 ML IV SCH (21:23)
[2024-09-14] VITALS (9 sets, daily range): BP systolic 148–188; BP diastolic 63–76; PULSE 73–77; RESP 17–20; TEMP 97.2–98.1; O2SAT 96–100
[2024-09-14] MEDS: sod chloride 0.9% 10ml flush syringe IV SCH (00:09)
[2024-09-14] MEDS: ceFAZolin 1GM/D5W- ADD-VANTAGE 50 ML IV SCH (01:10)
[2024-09-14] MEDS: ceFAZolin/D5W- 1GM premix 50 ML IV ONE (01:26)
[2024-09-14] MEDS: ibuprofen 200mg tablet PO PRN (01:38)
[2024-09-14] MEDS: hydrALAZINE 20mg/ml inj. IV PRN (01:40)
[2024-09-14] MEDS ORDERED: CHONDRO SU A PO SCH (08:00)
[2024-09-14] MEDS ORDERED: GLUCOSAMINE PO SCH (08:00)
[2024-09-14] MEDS ORDERED: aspirin 81mg tab.chew PO SCH (08:30)
--- NOTE | 2024-09-14 08:32 | RADIOLOGY REPORT ---
EXAM: DI CHEST,SINGLE VIEW Indication: Pain; s/p TAVR Technique: Single frontal view of the chest was obtained Comparison: None FINDINGS: Lines and Tubes: None Lungs: Pulmonary vascular congestion. Pleura: No effusion. No pneumothorax. Cardiomediastinal contours: Cardiomegaly. Bones: No acute osseous abnormality. IMPRESSION: No acute cardiopulmonary disease.
[2024-09-14] MEDS: aspirin 81mg, enteric-coated 1 TAB TABLET.DR PO SCH (09:16)
[2024-09-14] MEDS: levoTHYROXINE 25mcg tablet PO SCH (09:17)
[2024-09-14] MEDS: losartan 25mg tablet PO SCH (09:20)
--- NOTE | 2024-09-14 10:03 | ELECTROCARDIOGRAPH REPORT ---
[facility] Test Date: 2024-09-14 Test Time: 09:50:26 Pat Name: DAYLIN KEENE Department: [facility] Room: [place] [address] B Gender: F Manager Storage: CRISTNIE : 1960 Requested By: RANDY ANTHONY Order Number: [id number] Reading MD: Dr. Esvin Vaughn Measurements Intervals [place] Rate: 75 P: 66 DC: 191 QRS: 63 QRSD: 106 T: 79 QT: 411 QTc: 460 Interpretive Statements Sinus rhythm Borderline T wave abnormalities Electronically Signed On 09-16-2024 13:07:[address] Esvin Vaughn Please click the below link to view image of tracing.
[2024-09-14 10:12] LABS: ALANINE AMINOTRANSFERASE 21 U/L (12-78); ALBUMIN 3.3 G/DL (3.4-5.0); ALBUMIN/GLOBULIN RATIO 0.8 (1.1-1.5); ALKALINE PHOSPHATASE 75 IU/L (46-116); ANION GAP 12 (8-16); ASPARTATE AMINO TRANSFERASE 19 U/L (10-37); BILIRUBIN,TOTAL 0.4 MG/DL (0.1-1.0); BLOOD UREA NITROGEN 19 MG/DL (7-18); BUN/CREATININE RATIO 18.1 (10.0-20.0); CALCIUM 8.7 MG/DL (8.5-10.1); CHLORIDE 103 MMOL/L (99-107); CREATININE 1.05 MG/DL (0.40-0.90); GLUCOSE 266 MG/DL (70-104); MAGNESIUM 1.9 MG/DL (1.5-2.4); POTASSIUM 4.6 MMOL/L (3.5-5.1); PRO BRAIN NATRIURETIC PEPTIDE 386 PG/ML (0-125); SODIUM 141 MMOL/L (135-145); TOTAL CARBON DIOXIDE 26.4 MMOL/L (24-32); TOTAL PROTEIN 7.2 G/DL (6.4-8.2); eCRCL 44 ML/MIN; eGFR 53 ML/MIN
[2024-09-14] MEDS: cholecalciferol (vitamin D3) 1,000 unit (25mcg) tablet PO SCH (10:32)
[2024-09-14] MEDS: atorvastatin 20mg tablet PO SCH (10:33)
[2024-09-14 11:11] LABS: BASOPHILS % (AUTO) 0.2 % (0-1); EOSINOPHILS % (AUTO) 0 % (0-6); HEMATOCRIT 35.7 % (35.0-45.0); HEMOGLOBIN 11.6 g/dl (12.0-16.0); LYMPHOCYTES # (AUTO) 2.3 X10'3 (1.1-4.8); MEAN CORPUSCULAR HEMOGLOBIN 29.3 PG (27.0-31.0); MEAN CORPUSCULAR HGB CONC 32.5 g/dL (33.0-36.5); MEAN CORPUSCULAR VOLUME 90.1 FL (78-98); MEAN PLATELET VOLUME 10.1 FL (7.4-10.4); MONOCYTES % (AUTO) 6.4 % (2-12); NEUTROPHILS # (AUTO) 12.1 X10'3 (1.8-7.7); NEUTROPHILS % (AUTO) 78.4 % (42-75); PLATELET COUNT 186 X10'3 (140-440); RED BLOOD COUNT 3.97 X10'6 (4.20-5.60); RED CELL DISTRIBUTION WIDTH 14.2 % (11.5-14.5); WHITE BLOOD COUNT 15.4 X10'3 (4.5-11.0)
[2024-09-14] MEDS ORDERED: SULF1TAB49 PO (14:59)
[2024-09-14] MEDS ORDERED: furosemide 20MG tablet PO SCH (16:35)
--- NOTE | 2024-09-14 17:53 | CARDIOLOGY REPORT ---
APPROVED REPORT EXAM: Limited 2D, Doppler, and color-flow Echocardiogram. Patient Location: 302 Blood Pressure: 158/65 mmHg Heart Rate: 73 bpm Rhythm: NSR Indications ONE DAY FOLLOW-UP TAVR 26 mm Hubbard Wayne 3 Ultra RESILIA Bioprosthetic TAVR Scholarship Counselor: Raghav Previous echo 09/13/24 [facility] EF 65-70; HANK 3.3; Peak v 1.73; Grad 03/09 2D Dimensions LVOT Diameter 2.60 (1.8-2.4cm) IVC 20.53 mm Aortic Valve AoV Peak Alexsander. 269.6 cm/s AoV VTI 56.8 cm AO Peak GR. 29.1 mmHg AO Mean GR. 16 mmHg LVOT VTI 35.20 cm LVOT Peak Alexsander. 160.1 cm/s HANK(VTI)/BSA 3.30 cm2/m2 HANK (VTI) 3.30 cm2 Mitral Valve MV Peak Gr. 9 mmHg MV PHT 72 ms MVA (PHT) 3.06 cm2 MV [id number] cm/s Tricuspid Valve TR P. Velocity 280 cm/s RAP ESTIMATE 10 mmHg TR Peak Gr. 31 mmHg RVSP 41 mmHg LEFT VENTRICLE LV appears normal in size with mild concentric hypertrophy. Overall systolic function appears normal. LVEF is 65-70%. RIGHT VENTRICLE RV appears normal in size and contractility. RVSP is estimated at 41 mmHG. AORTIC VALVE 26 mm Hubbard Wayne 3 Ultra RESILIA Bioprosthetic TAVR. HANK is measured at 3.3 cmsq. Peak/mean gradi ents of 29/16 mmHG. Peak velocity is measured at 2.70 m/sec. Trivial paravalvular leak noted from REBECA X TTE. MITRAL VALVE MV is thickened with mild annular calcification and no stenosis. Trace mitral regurgitation. TRICUSPID VALVE The tricuspid valve is normal in structure. Trace tricuspid regurgitation. GREAT VESSELS The IVC is normal in size and collapses >50% with inspiration. PERICARDIUM There is no pericardial effusion. Other Information Study Quality: Adequate Conclusion LV appears normal in size with mild concentric hypertrophy. Overall systolic function appears normal. LVEF is 65-70%. RV appears normal in size and contractility. RVSP is estimated at 41 mmHG. 26 mm Hubbard Wayne 3 Ultra RESILIA Bioprosthetic TAVR. HANK is measured at 3.3 cmsq. Peak/mean grad ients of 29/16 mmHG. Peak velocity is measured at 2.70 m/sec. Trivial paravalvular leak noted from P LAX TTE. MV is thickened with mild annular calcification and no stenosis. Trace mitral regurgitation. The tricuspid valve is normal in structure. Trace tricuspid regurgitation. There is no pericardial effusion.
--- NOTE | 2024-09-14 18:12 | DISCHARGE SUMMARY ---
Discharge Summary Providers to CC ~ Discharge Summary Admission Diagnosis: Severe Aortic Stenosis Hospital Course DATE OF ADMISSION: 09/13/24 DATE OF DISCHARGE: 09/14/24 Discharge Diagnosis\Comment: Severe aortic stenosis status post TAVR Urinary tract infection we will be started on Bactrim double strength b.i.d. for five days Hypertension Acute on chronic diastolic heart failure Operations\Procedures: 1. Ultrasound-guided access, bilateral femoral vessels. 2. Bilateral femoral angiography. 3. Ascending aortography. 4. Temporary transvenous pacer to the RV apex. 5. Placement of a 26 +1 mm Hubbard S3 Resilia valve. Consultants: No consultants Complications: No complications Condition on DC: Stable New Medications: Sulfamethoxazole/Trimethoprim (Bactrim Ds Tablet) 800 Mg-160 Mg Tablet 1 TAB PO Q12H for 5 Days, #10 TAB Continued Medications: albuterol inhaler (Pro-Air Inhaler) 8.5 Gm Inhaler 2 PUFFS INH Q4HPRN PRN for wheezing for 30 Days, #18 GM Aspirin (Aspirin EC) 81 Mg Tablet.dr 1 TAB PO DAILY, TAB Atorvastatin Calcium (Atorvastatin Calcium) 80 Mg Tablet 1 TAB PO DAILY Cholecalciferol (Vitamin D3) (Vitamin D3) 125 Mcg (5000 Unit) Capsule 1 CAP PO DAILY Furosemide (Furosemide) 20 Mg Tablet 1 TAB PO MoWeFr Glucosamine/Chondro Zamudio A (Glucosamine-Chondroitin Tab) 500 Mg-400 Mg Tablet 1 TAB PO DAILY for 30 Days, #90 TAB 0 Refills [glycogen] () Hydrocodone Bit/Acetaminophen 10/325 MG* ([place] 10/325 MG*) 10 Mg/325 Mg Tablet 1 TAB PO Q8H PRN for pain Ibuprofen (Ibuprofen) 600 Mg Tablet 1 TAB PO TID PRN for pain Insulin Glargine,Hum.rec.anlog (Lantus Solostar) 300 Unit/3 Ml Insuln.pen 60 UNIT SQ TID PRN for bg >250 Insulin Lispro* (Humalog*) 100 Units/1 Ml Vial 37 UNITS SQ TID PRN for bg>250 Levothyroxine Sodium (Levothyroxine Sodium) 50 Mcg Tablet 1 TAB PO DAILY Losartan Potassium (Losartan Potassium) 25 Mg Tablet 1 TAB PO DAILY Metformin Hcl* (Metformin ER*) 500 Mg Tab.sr.24h 1 TAB PO DAILY Oxybutynin Chloride (Oxybutynin Chloride Er) 5 Mg Tab.osm.24 5 MG PO BID Tirzepatide (Mounjaro) 5 Mg/0.5 Ml Pen.injctr 5 MG SQ Q7D [vitamin c] () Discharge Summary: This is a 63-year-old female who presented for planned TAVR. Underwent placement of a 26+ 1 mm Hubbard S3 resilient valve via the right transfemoral approach. Tolerated the procedure well. Was monitored overnight in the telemetry unit and remained hemodynamically stable. Has been up and ambulatory. No complaints of chest pain or pressure. No shortness a breath. No dizziness, lightheadedness or syncope. Postoperative testing reviewed by Dr. Dr. Rekha Hastings. EKG reveals sinus rhythm. Echocardiogram demonstrates preserved LVEF. TAVR valve well seated with trivial perivalvular leak. Physical exam prior to discharge: General: Awake, alert, oriented. No apparent distress Neck: Supple. Normal range of motion. No JVD Respiratory: Lungs are clear and diminished to auscultation bilaterally. No respiratory distress. Chest: Normal shape and size. No accessory muscle use. Cardiovascular: Regular rate and rhythm. S1-S2. No murmur, gallop, rub. Gastrointestinal: Abdomen is soft, large. Nontender to palpation. Bowel sounds present. Extremities: No lower extremity edema, cyanosis or clubbing. Neurologic: Alert and oriented x4. Nonfocal Psychiatric: Normal mood and affect. Skin: Normal color. Warm and dry. Laboratory Tests Test 09/13/24 18:36 09/14/24 08:01 09/14/24 10:05 Glucometer 212 mg/dl (70-104) CBC Comment Sodium Level 141 MMOL/L (135-145) Potassium Level 4.6 MMOL/L (3.5-5.1) Chloride Level 103 MMOL/L (99-107) Carbon Dioxide Level 26.4 MMOL/L (24-32) Anion Gap 12 (8-16) Blood Urea Nitrogen 19 MG/DL (7-18) Creatinine 1.05 MG/DL (0.40-0.90) Estimated GFR/1.73 m2 53 ML/MIN BUN/Creatinine Ratio 18.1 (10.0-20.0) Glucose Level 266 MG/DL (70-104) Calcium Level 8.7 MG/DL (8.5-10.1) Magnesium Level 1.9 MG/DL (1.5-2.4) Total Bilirubin 0.4 MG/DL (0.1-1.0) Aspartate Amino Transf (AST/SGOT) 19 U/L (10-37) Alanine Aminotransferase (ALT/SGPT) 21 U/L (12-78) Alkaline Phosphatase 75 IU/L (46-116) Pro-B-Type Natriuretic Peptide 386 PG/ML (0-125) Total Protein 7.2 G/DL (6.4-8.2) Albumin 3.3 G/DL (3.4-5.0) Globulin 3.9 G/DL (2.7-4.3) Albumin/Globulin Ratio 0.8 (1.1-1.5) Chemistry Comments White Blood Count 15.4 X10'3 (4.5-11.0) Red Blood Count 3.97 X10'6 (4.20-5.60) Hemoglobin 11.6 g/dl (12.0-16.0) Hematocrit 35.7 % (35.0-45.0) Mean Corpuscular Volume 90.1 FL (78-98) Mean Corpuscular Hemoglobin 29.3 PG (27.0-31.0) Mean Corpuscular Hemoglobin Concent 32.5 g/dL (33.0-36.5) Red Cell Distribution Width 14.2 % (11.5-14.5) Platelet Count 186 X10'3 (140-440) Mean Platelet Volume 10.1 FL (7.4-10.4) Neutrophils (%) (Auto) 78.4 % (42-75) Lymphocytes (%) (Auto) 15.0 % (21-51) Monocytes (%) (Auto) 6.4 % (2-12) Eosinophils (%) (Auto) 0 % (0-6) Basophils (%) (Auto) 0.2 % (0-1) Neutrophils # (Auto) 12.1 X10'3 (1.8-7.7) Lymphocytes # (Auto) 2.3 X10'3 (1.1-4.8) Monocytes # (Auto) 1.0 X10'3 (0-0.9) Eosinophils # (Auto) 0.0 X10'3 (0-0.9) Basophils # (Auto) 0.0 X10'3 (0-0.2) Vital Signs Date Time Temp Pulse Resp B/P (MAP) Pulse Ox O2 Delivery O2 Flow Rate FiO2 09/14/24 10:00 76 20 158/65 (96) 97 Nasal Cannula 3.0 09/14/24 06:00 97.2 Plan: Patient being discharged home in stable condition. She will follow up as scheduled. Activity restrictions reviewed. She was found to have urinary tract infection on preoperative testing. Culture and sensitivity reviewed. We will be started on Bactrim as noted above. Reviewed with Dr. Maycol Camejo. In agreement with discharge home. *Problems/Diagnosis: (1) Severe aortic stenosis (2) Urinary tract infection (3) Hypertension (4) Acute on chronic diastolic heart failure Total Time Spent on D/C: > 30 Minutes Counseling Services Smoking & Tobacco Cessation: N/A Supervising MD Co-signing Provider: KADIE Wray NP Sep 14, 2024 18:12
== END 2024-09-14 16:30 | disposition home or self-care (01) | DRG 266 ==
LOC: PAS IN 10:55 → PCU 3S 20:20
PROVIDERS: ADMIT Internal Medicine Cardiovascular Disease; ATTEND Internal Medicine Cardiovascular Disease
PROC: B41D1ZZ Fluoroscopy of Aorta and Bilateral Lower Extremity Arteries using Low Osmolar Contrast (ICD-10-PCS; 2024-09-13)
PROC: 03HY32Z Insertion of Monitoring Device into Upper Artery, Percutaneous Approach (ICD-10-PCS; 2024-09-13)
PROC: 02RF38Z Replacement of Aortic Valve with Zooplastic Tissue, Percutaneous Approach (ICD-10-PCS; principal; 2024-09-13 16:29)
DX: I35.0 Nonrheumatic aortic (valve) stenosis (principal); Z00.6 Encounter for examination for normal comparison and control in clinical research program; I50.33 Acute on chronic diastolic (congestive) heart failure; N39.0 Urinary tract infection, site not specified; I11.0 Hypertensive heart disease with heart failure; Z88.8 Allergy status to other drugs, medicaments and biological substances
CPT/HCPCS: 33361; 36415; 71045; 76937; 80053; 81001; 82948; 83036; 83735; 83880; 84443; 85025; 85347; 85610; 85730; 86885; 86900; 86901; 86920; 87077; 87081; 87088; 87186; 93005; 93308; A4615; A4618; A6258; A6449; C1756; C1760; C1769; C1894; G0378; J0131; J0360; J0690; J1100; J1644; J2003; J2250; J2371; J2405; J2704; J2710; J2720; J3010; J3370; J3372; J3490; J7030; J7040; J7050; J7120; Q9967